=== PATIENT | female | born 1990 | race Caucasian/White ===

== ENCOUNTER 2022-10-23 13:37 | Emergency (ER) | payer MEDICAID ==
[~2022-10-23] VITALS: Ht 157.5 cm; Wt 74.8 kg
[2022-10-23 13:44] VITALS: BP 131/76; PULSE 78; RESP 20; O2SAT 98
--- NOTE | 2022-10-23 14:01 | NUR ---
PA IN TRIAGE EVALUATING THE PT.
[2022-10-23 14:29] LABS: APPEARANCE,URINE CLOUDY (CLEAR); BASOPHILS # (AUTO) 0.1 K/uL (0.00-0.22); BASOPHILS % (AUTO) 0.6 % (0.0-2.0); BILIRUBIN,URINE 1+ (NEGATIVE); BLOOD, URINE 3+ (NEGATIVE); COLOR,URINE RED (YELLOW); EOSINOPHILS # (AUTO) 0.4 K/uL (0-0.4); EOSINOPHILS % (AUTO) 3.4 % (0.0-4.0); HEMATOCRIT 39.4 % (36-48); HEMOGLOBIN 13.4 g/dL (12.0-16.0); LEUKOCYTE ESTERASE ,URINE TRACE (NEGATIVE); LYMPHOCYTES % (AUTO) 24.6 % (20.5-51.1); MEAN CORPUSCULAR HEMOGLOBIN 29 pg (27-31); MEAN CORPUSCULAR HGB CONC 34 g/dL (33-37); MEAN CORPUSCULAR VOLUME 84.6 fL (80-94); MONOCYTES # (AUTO) 0.7 K/uL (0.8-1.0); MONOCYTES % (AUTO) 5.4 % (1.7-9.3); NEUTROPHILS # (AUTO) 7.9 K/uL (1.8-7.7); NITRITE, URINE NEGATIVE (NEGATIVE); PH,URINE 6.5 (5.0-9.0); PLATELET COUNT (AUTO) 307 K/uL (140-450); RED BLOOD CELL COUNT(AUTO) 4.66 MIL/uL (4.20-5.40); RED CELL DISTRIBUTION WIDTH 13.1 % (11.6-13.7); UGLUCOSE NEGATIVE (NEGATIVE)
--- NOTE | 2022-10-23 14:30 | NUR ---
PT AMBULATED TO BED 11 WITH
[2022-10-23] MEDS ORDERED: ACETAMINOPHEN EXTRA STRENGTH 500 MG TAB PO ONE (14:35)
--- NOTE | 2022-10-23 14:36 | NUR ---
PT REFUSED MEDICATION
[2022-10-23 15:19] LABS: RBC,URINE TOO NUMEROUS TO COUN /HPF (0-5)
[2022-10-23 15:26] LABS: RED BLOOD CELL CASTS,URINE 0-10 /LPF (None Seen)
--- NOTE | 2022-10-23 16:40 | NUR ---
Ultrasound at bedside. MILITARY ADMINISTRATIVE TECHNICIAN ROSIBEL THOMPSON AT BEDSIDE WITH ACTUARY CLERK
[2022-10-23] MEDS ORDERED: NITR100C7 PO (17:15)
[2022-10-23] MEDS ORDERED: ACET-9882 PO (17:15)
[2022-10-23 17:35] VITALS: BP 136/81; PULSE 65; RESP 20; TEMP 97.6; O2SAT 100
--- NOTE | 2022-10-23 17:35 | NUR ---
Patient discharged with v/s stable. Written and verbal after care instructions given and explained. Patient alert, oriented and verbalized understanding of instructions. Ambulatory with steady gait. All questions addressed prior to discharge. ID band removed. Patient advised to follow up with PMD. Rx of acetaminophen,macrobid given. Patient educated on indication of medication including possible reaction and side effects. Opportunity to ask questions provided and answered.
== END 2022-10-23 17:35 | disposition home or self-care (01) ==
LOC: MED 13:37
DX: O20.0 Threatened abortion (principal); O23.41 Unspecified infection of urinary tract in pregnancy, first trimester; R03.0 Elevated blood-pressure reading, without diagnosis of hypertension; Z3A.01 Less than 8 weeks gestation of pregnancy
CPT/HCPCS: 36415; 76817; 81001; 81025; 84702; 85025; 86900; 86901; 87086; 99284; Q0092

== ENCOUNTER 2022-12-14 17:45 | Emergency (ER) | payer MEDICAID ==
[~2022-12-14] VITALS: Ht 162.6 cm; Wt 65.8 kg
[~2022-12-14 17:45] MED LIST: ACET-9882 PO; NITR100C7 PO
[2022-12-14 18:19] VITALS: BP 124/80; PULSE 95; RESP 17; TEMP 97.4; O2SAT 98
[2022-12-14 19:51] LABS: APPEARANCE,URINE CLOUDY (CLEAR); COLOR,URINE BLOODY (YELLOW); LEUKOCYTE ESTERASE ,URINE 3+ (NEGATIVE); NITRITE, URINE NEGATIVE (NEGATIVE); UROBILINOGEN,URINE 0.2 EU/dL (0.2 - 1)
[2022-12-14 19:52] LABS: BLOOD, URINE 3+ (NEGATIVE); PROTEIN,URINE 3+ (NEGATIVE)
[2022-12-14 19:53] LABS: BILIRUBIN,URINE 1+ (NEGATIVE); UGLUCOSE NEGATIVE (NEGATIVE)
[2022-12-14 19:57] LABS: BACTERIA,URINE FEW /HPF (None Seen); RBC,URINE 50-80 /HPF (0-5); SQUAMOUS EPITHELIAL CELL,UR 0-3 (FEW) /LPF (0-3 (FEW))
[2022-12-14 19:58] LABS: ICTOTEST NEGATIVE (NEGATIVE)
[2022-12-14] MEDS ORDERED: cefTRIAXone 1,000 MG in LIDOCAINE MPF 1% 2.1 ML IM ONE (20:00)
[2022-12-14] MEDS ORDERED: LIDOCAINE MPF 1% 5 ML ONE (20:06)
[2022-12-14] MEDS ORDERED: cefTRIAXone 1,000 MG VIAL ONE (20:06)
[2022-12-14] MEDS ORDERED: IBUP-2213 PO (20:07)
[2022-12-14] MEDS ORDERED: PYR100 PO (20:07)
[2022-12-14] MEDS ORDERED: CEPH-588 PO (20:07)
== END 2022-12-14 20:10 | disposition home or self-care (01) ==
LOC: MED 17:45
DX: N39.0 Urinary tract infection, site not specified (principal); R03.0 Elevated blood-pressure reading, without diagnosis of hypertension; Z79.899 Other long term (current) drug therapy
CPT/HCPCS: 81001; 81025; 87086; 96372; 99283; J0696; J2001